=== PATIENT | male | born 1995 | race Caucasian/White ===

== ENCOUNTER 2017-02-11 10:42 | Emergency (ER) | payer OTHER ==
[2017-02-11 10:50] VITALS: BP 145/71
[2017-02-11] MEDS ORDERED: Ketorolac 10 MG Tab PO ONE (11:10)
--- NOTE | 2017-02-11 11:16 | EDM.PDOC ---
ED HPI Trauma - General Chief Complaint: Lower Extremity Injury/Pain Stated Complaint: left foot/ankle pain Time Seen by Provider: 02/11/17 10:55 - History of Present Illness INITIAL COMMENTS - FREE TEXT/NARRATIVE: 900 pound welding table fell. Caught patient's anterior left lower leg/ankle area as it fell. Had cowboy boots on. Has pain in anterior portion of ankle area. No pain at sides of ankle or sole/toes. Numbness at site where table hit but otherwise no numbness of rest of foot. No laceration/bleeding. Denies chronic medical problems at this time. Denies other injuries. Does not want a "shot" for pain. Allergies/ADRs: Allergies No Known Allergies Allergy (Verified 02/11/17 11:02) Home Medications: Ambulatory Orders . [No Known Home Meds] 02/11/17 [Confirmed 02/11/17] Past Medical History HEENT History: Reports: None Cardiovascular History: Reports: None Gastrointestinal History: Reports: None Genitourinary History: Reports: None Musculoskeletal History: Reports: Arthritis, Back pain, chronic, Fracture, Neck pain, chronic, Osteoarthritis, Other (see below) Other Musculoskeletal History: Nasal fracture at age 10, left foot fracture at age 14, fracture of the hands bilaterally with multiple previous right hand fractures secondary to cage fighting with no previous evaluations, patient has refractory chronic neck and low back pain Psychiatric History: Reports: Anxiety, Depression Endocrine/Metabolic History: Reports: None Hematologic History: Reports: None Immunologic History: Reports: None Oncologic (Cancer) History: Reports: None Dermatologic History: Reports: None - Infectious Disease History Infectious Disease History: Reports: Chicken pox - Past Surgical History Head Surgeries/Procedures: Reports: None HEENT Surgical History: Reports: Naso-sinus surgery, Oral surgery, Other (see below) Other HEENT Surgeries/Procedures: Nasal fracture repair at about age 10, tooth extraction Cardiovascular Surgical History: Reports: None Respiratory Surgical History: Reports: None GI Surgical History: Reports: None Male Surgical History: Reports: Circumcision, Other (see below) Other Male Surgeries/Procedures: Circumcision as an infant Endocrine Surgical History: Reports: None Neurological Surgical History: Reports: None Musculoskeletal Surgical History: Reports: None Oncologic Surgical History: Reports: None Dermatological Surgical History: Reports: None - Past Imaging History Past Imaging History: Reports: None Social & Family History - Tobacco Use Smoking Status *Q: Current Every Day Smoker Years of Tobacco use: 4 Packs/Tins Daily: 2 Used Tobacco, but Quit: No Second Hand Smoke Exposure: No - Caffeine Use Caffeine Use: Reports: Energy drinks, Soda. Denies: Coffee, Tea Caffeine Use Comment: 1 energy drink every 4-5 days, 10 sodas per day - Alcohol Use Days Per Week of Alcohol Use: 0 Number of Drinks Per Day: 3 Total Drinks Per Week: 0 - Recreational Drug Use Recreational Drug Use: No Drug Use in Last 12 Months: No - Living Situation & Occupation Living situation: Reports: (2013, one child), alone Occupation: employed ([employer], liquor store manager, [employer]) Review of Systems - Review of Systems Review Of Systems: ROS reveals no pertinent complaints other than HPI. Trauma Exam - Physical Exam Exam: See Below Exam Limited By: No limitations General Appearance: Reports: alert, WD/WN, no apparent distress Head: Reports: atraumatic, normocephalic Eyes: bilateral eye: EOMI Respiratory Exam: Reports: no respiratory distress Extremities: Reports: bony-point tenderness (tender anteriorly/superiorly at ankle. No malleolar tenderness. Patient does not wish to do ROM exercises due to discomfort. Can wiggle toes. NVI distal to injury. Mild redness and superficial scuff alem noted where ankle tender. ). Denies: no pedal edema Neurologic: Reports: alert, normal mood/affect, oriented x 3 Skin: Reports: Warm/dry Course - Vital Signs Last Recorded V/S: Last Vital Signs Temp 37.5 C 02/11/17 10:43 Pulse 70 02/11/17 10:43 Resp 18 02/11/17 10:43 BP 145/71 H 02/11/17 10:43 Pulse Ox 100 02/11/17 10:43 - Orders/Labs/Meds Orders: Active Orders 24 hr Category Date Time Status Ankle Min 3V Lt [CR] Stat Exams 02/11/17 10:47 Taken Foot Comp Min 3V Lt [CR] Stat Exams 02/11/17 10:46 Taken Meds: Medications Discontinued Medications Generic Name Dose Route Start Last Admin Trade Name Freq PRN Reason Stop Dose Admin Ketorolac Tromethamine 10 mg 02/11/17 11:10 02/11/17 11:30 Toradol PO 02/11/17 11:11 10 mg ONETIME ONE Administration - Re-Assessments/Exams Free Text/Narrative Re-Assessment/Exam: 02/11/17 12:42 Slight abnormality noted on single view of foot/ankle. Requested Radiology review films. No fracture noted per Radiology. Patient will take off the rest of today but wishes to try to go to work tomorrow. Rest/ice/elevation recommended. Tylenol or Ibuprofen for pain. He is to follow up at the clinic tomorrow for recheck if still significantly uncomfortable. Cautions provided, including mention of possible ligament/tendon damage that would not be picked up by plain films. Departure - Departure Time of Disposition: 12:44 Disposition: Home, Self-Care 01 Condition: good Clinical Impression: Contusion, ankle Qualifiers: Encounter type: initial encounter Laterality: left Qualified Code(s): S90.02XA - Contusion of left ankle, initial encounter Instructions: Foot Contusion, [id number] Forms: ED Department Discharge Additional Instructions: Call and make appointment for recheck tomorrow if you still have significant discomfort and cannot return to usual activities/work. Ice/elevate today. OK to take Tylenol or ibuprofen or Aleve for pain as discussed. - My Orders Last 24 Hours: My Active Orders 02/11/17 10:46 Foot Comp Min 3V Lt [CR] Stat 02/11/17 10:47 Ankle Min 3V Lt [CR] Stat - Assessment/Plan Last 24 Hours: My Active Orders 02/11/17 10:46 Foot Comp Min 3V Lt [CR] Stat 02/11/17 10:47 Ankle Min 3V Lt [CR] Stat
== END 2017-02-11 12:55 | disposition home or self-care (01) ==
LOC: LL.ED 10:42
DX: S90.02XA Contusion of left ankle, initial encounter (principal); F17.210 Nicotine dependence, cigarettes, uncomplicated; Z98.890 Other specified postprocedural states; W20.8XXA Other cause of strike by thrown, projected or falling object, initial encounter
CPT/HCPCS: 73610; 73630; 99283; A9270

== ENCOUNTER 2017-08-16 02:17 | Emergency (ER) | payer SELFPAY ==
[2017-08-16 02:45] VITALS: BP 136/74
--- NOTE | 2017-08-16 03:01 | EDM.PDOC ---
ED HPI GENERAL MEDICAL PROBLEM - General Chief Complaint: General Stated Complaint: L Back Pain, Throat Pain Time Seen by Provider: 08/16/17 02:25 Source of Information: Reports: Patient History Limitations: Reports: No Limitations - History of Present Illness Onset: Sudden Duration: Hour(s): Location: Reports: Head, Face, Back Severity: Mild Improves with: Reports: Other (Patient states that pain was 10 out of 10 at around 0200 then he fell asleep pain now is 4 out of 10 located right CVA area tender to palpation go ahead and waiting for a UA) Associated Symptoms: Reports: Fever/Chills, Nausea/Vomiting Treatments DOG POUND ATTENDANT: Reports: Acetaminophen, Cold Therapy Left Lower Back Pain Score (Numeric/FACES): 4 - Related Data Allergies Allergy/AdvReac Type Severity Reaction Status Date / Time No Known Allergies Allergy Verified 08/16/17 02:19 Home Meds: Home Meds Acetaminophen [Tylenol] 650 mg PO Q6HR PRN 08/16/17 [History] Past Medical History HEENT History: Reports: None Cardiovascular History: Reports: None Gastrointestinal History: Reports: None Genitourinary History: Reports: None Musculoskeletal History: Reports: Arthritis, Back Pain, Chronic, Fracture, Neck Pain, Chronic, Osteoarthritis Other Musculoskeletal History: Nasal fracture at age 10, left foot fracture at age 14, fracture of the hands bilaterally with multiple previous right hand fractures secondary to cage fighting with no previous evaluations, patient has refractory chronic neck and low back pain Psychiatric History: Reports: Anxiety, Depression Endocrine/Metabolic History: Reports: None Hematologic History: Reports: None Immunologic History: Reports: None Oncologic (Cancer) History: Reports: None Dermatologic History: Reports: None - Infectious Disease History Infectious Disease History: Reports: Chicken Pox - Past Surgical History Head Surgeries/Procedures: Reports: None HEENT Surgical History: Reports: Naso-Sinus Surgery, Oral Surgery, Other (See Below) Cardiovascular Surgical History: Reports: None Respiratory Surgical History: Reports: None GI Surgical History: Reports: None Male Surgical History: Reports: Circumcision Endocrine Surgical History: Reports: None Neurological Surgical History: Reports: None Oncologic Surgical History: Reports: None Dermatological Surgical History: Reports: None - Past Imaging History Past Imaging History: Reports: None Social & Family History - Tobacco Use Smoking Status *Q: Current Every Day Smoker Years of Tobacco use: 6 Packs/Tins Daily: 1 Used Tobacco, but Quit: No Second Hand Smoke Exposure: No - Caffeine Use Caffeine Use: Reports: Energy Drinks, Soda Caffeine Use Comment: 1 energy drink every 4-5 days, 10 sodas per day - Alcohol Use Days Per Week of Alcohol Use: 0 Number of Drinks Per Day: 3 Total Drinks Per Week: 0 Date of Last Drink: 08/09/17 - Recreational Drug Use Recreational Drug Use: No Drug Use in Last 12 Months: No - Living Situation & Occupation Living situation: Reports: , Alone Occupation: Employed ED ROS GENERAL - Review of Systems Review Of Systems: See Below Constitutional: Reports: Fever, Chills, Night Sweats HEENT: Reports: Throat Pain Respiratory: Reports: Shortness of Breath Cardiovascular: Reports: No Symptoms Endocrine: Reports: No Symptoms GI/Abdominal: Reports: Vomiting : Reports: Flank Pain, Pain (Right upper quadrant) Musculoskeletal: Reports: No Symptoms Skin: Reports: No Symptoms Neurological: Reports: No Symptoms ED EXAM, GENERAL - Physical Exam Exam: See Below Exam Limited By: No Limitations General Appearance: Alert, WD/WN, No Apparent Distress Ears: Normal External Exam, Normal Canal, Hearing Grossly Normal, Normal TMs Ear Exam: Bilateral Ear: Auricle Normal, Canal Normal, TM normal Nose: Normal Inspection, Normal Mucosa, No Blood Throat/Mouth: Other (Pharynx was red no exudate seen) Head: Atraumatic, Normocephalic Neck: Normal Inspection, Supple Respiratory/Chest: No Respiratory Distress, Lungs Clear, Normal Breath Sounds, No Accessory Muscle Use, Chest Non-Tender Cardiovascular: Normal Peripheral Pulses, Regular Rate, Rhythm, No Edema, No Gallop, No JVD, No Murmur, No Rub GI/Abdominal: Normal Bowel Sounds, Soft, Non-Tender, No Organomegaly, No Distention, No Abnormal Bruit, No Mass (Male) Exam: Deferred Rectal (Males) Exam: Deferred Back Exam: Normal Inspection, CVA Tenderness (L) Extremities: Normal Inspection, Normal Range of Motion, Non-Tender, Normal Capillary Refill, No Pedal Edema Neurological: Alert, Oriented, CN II-XII Intact, Normal Cognition, Normal Gait, Normal Reflexes, No Motor/Sensory Deficits Psychiatric: Normal Affect, Normal Mood Skin Exam: Warm, Dry, Intact, Normal Color, No Rash Lymphatic: No Adenopathy Course - Vital Signs Last Recorded V/S: Last Vital Signs Temp 98.4 F 08/16/17 02:20 Pulse 66 08/16/17 02:20 Resp 18 08/16/17 02:20 BP 136/74 08/16/17 02:20 Pulse Ox 98 08/16/17 02:20 - Orders/Labs/Meds Labs: Laboratory Tests 08/16/17 Range/Units 02:34 Specimen Type Urinblad Urine Color Dark yellow Urine Appearance Slightly cloudy Urine pH 7.0 (5.0-9.0) Ur Specific [place] 1.020 (1.005-1.030) Urine Protein 30 H (NEGATIVE) mg/dL Urine Glucose (UA) Negative (NEGATIVE) mg/dL Urine Ketones 80 H (NEGATIVE) mg/dL Urine Occult Blood Negative (NEGATIVE) Urine Nitrite Negative (NEGATIVE) Urine Bilirubin Small H (NEGATIVE) Urine Urobilinogen 2.0 H (0.2-1.0) E.U./dL Ur Leukocyte Esterase Negative (NEGATIVE) Urine RBC 0-5 /HPF Urine WBC 10-20 H /HPF Ur Epithelial Cells Not seen /LPF Urine Bacteria Few (NONE TO FEW) /HPF Urine Mucus Many H (NEGATIVE) /LPF Departure - Departure Time of Disposition: 03:35 Disposition: Home, Self-Care 01 Condition: Good Clinical Impression: Pharyngitis, UTI, Urinary tract infectious disease - Discharge Information Instructions: Phenazopyridine tablets, Strep Throat, [id number], Urinary Tract Infection, Adult, Amoxicillin; Clavulanic Acid extended-release tablets Referrals: Kathy Hernandez PA-C [Primary Care Provider] - Forms: ED Department Discharge Care Plan Goals: Patient will be started on Augmentin 875 twice a day for 10 days plus Bactrim 100 mg 3 times a day
== END 2017-08-16 03:35 | disposition home or self-care (01) ==
LOC: LL.ED 02:17
DX: J02.9 Acute pharyngitis, unspecified (principal); N39.0 Urinary tract infection, site not specified; F17.210 Nicotine dependence, cigarettes, uncomplicated
CPT/HCPCS: 81001; 87430; 99283; 99284